=== PATIENT | male | born 1965 | race Caucasian/White ===

== ENCOUNTER 2020-04-16 16:31 | Outpatient (CLI) | payer OTHER ==
--- NOTE | 2020-04-16 18:23 | MRI Report ---
PROCEDURE: Cervical Spine W/O INDICATIONS: CERVICAL RADICULOPATHY TECHNIQUE: Noncontrast sagittal T1 spin echo and T2 fast spin echo, sagittal STIR, foraminal oblique sagittal T2 fast spin echo, and axial gradient echo or T2 fast spin echo through the cervical spine. COMPARISON: None. FINDINGS: Image quality: Motion artifact is noted. Alignment and Curvature: Mild dextroconvex cervicothoracic scoliosis is seen. No significant AP alig nment abnormality can be seen. Bone Marrow: Marrow demonstrates normal overall signal. Spinal Cord: Visualized spinal cord has normal size and signal. No cerebellar tonsillar herniation. Paraspinous Soft Tissues: No paravertebral masses. Prevertebral soft tissues are normal in thicknes s. C2-C3: No significant abnormality is seen. C3-C4: Mild to moderate loss of disc height and disc signal can be seen. Moderate disc osteophyte c omplex is seen, which is eccentric to the left, with a central/left disc osteophyte protrusion, as on series 1001 image 20. There is moderate to severe right-sided and moderate left-sided neuroforaminal narrowing seen. Moderate to severe central canal narrowing is seen, with associated ventral cord fla ttening. C4-C5: At least moderate loss of disc height and disc signal can be seen. Endplate irregularity is s een. At least moderate disc osteophyte complex is seen, with a central/left disc osteophyte protrusio n. Mild facet hypertrophy is seen. There is moderate to severe bilateral neuroforaminal narrowing s een, left worse than right. Moderate to severe central canal narrowing is seen, with associated ventr al cord flattening. C5-C6: Moderate to severe loss of disc height and disc signal can be seen. Moderate disc osteophyte complex is seen, which is eccentric to the right. Mild facet hypertrophy is seen. There is moderate to severe bilateral neuroforaminal narrowing seen. Moderate to severe central canal narrowing is see n, with associated ventral cord flattening. C6-C7: At least moderate loss of disc height and disc signal can be seen. Mild to moderate disc oste ophyte complex is seen, which is eccentric to the right. Mild facet hypertrophy is seen. There is m oderate to severe bilateral neuroforaminal narrowing seen. Moderate central canal narrowing is seen. Associated mass effect is seen upon the ventral spinal cord. C7-T1: Moderate loss of disc height and signal are seen. Moderate disc osteophyte complex is seen, with a mild central disc protrusion. Mild facet hypertrophy is seen. There is at least moderate bryan ateral neuroforaminal narrowing seen. Mild to moderate central canal narrowing can be seen. IMPRESSION: Multiple levels of relatively prominent cervical spine degenerative change are seen, which are most p rominent inferiorly. Reviewed by: Stoney Bullock MD on 04/16/2020 5:22 PM [place] Approved by: Stoney Bullock MD on 04/16/2020 5:22 PM [place] Station ID: [id number]
== END 2020-04-16 16:32 | disposition home or self-care (01) ==
LOC: DI 16:31
PROVIDERS: ATTEND Nurse Practitioner Family
DX: M50.21 Other cervical disc displacement, high cervical region (principal); M50.31 Other cervical disc degeneration, high cervical region; M48.02 Spinal stenosis, cervical region; M47.812 Spondylosis without myelopathy or radiculopathy, cervical region; M47.813 Spondylosis without myelopathy or radiculopathy, cervicothoracic region